=== PATIENT | female | born 1970 | race Caucasian/White ===

== ENCOUNTER 2022-11-26 00:32 | Outpatient (CLI) | payer BC, SELFPAY ==
--- NOTE | 2022-11-26 | DI.MAMMO_ITS ---
Exam(s) MAMMO SCREENING EXAM: MAMMO SCREENING CLINICAL HISTORY: SCREENING FOR BREAST CANCER Z12.39 TECHNIQUE: Bilateral full field digital CC and MLO mammographic images were obtained with 3D tomosyn thesis and utilizing computer aided detection (CAD). COMPARISON: Available for comparison. FINDINGS: Masses/Architectural Distortion: None seen. Microcalcifications: No suspicious pleomorphic-type are seen. Skin Thickening/Nipple Retraction: None. IMPRESSION: 1. No significant interval change with no specific features of malignancy noted. 2. Unless there is more urgent need, screening mammography is recommended, as per [employer] guidelines. BI-RADS Category 1 - Negative Breast Density - Category C - Heterogeneously dense Breast density category C or D implies that the patient has dense breast tissue. Dense breast tissue is very common and is not abnormal but dense breast tissue can make it harder to find cancer on a ma mmogram. Also, dense breast tissue may increase their breast cancer risk. This information about the result of the mammogram report was provided to the patient to raise their awareness. Use this report when you speak with the patient about their risks for breast cancer, which includes their family hist ory. At that time, you may recommend for more screening tests (Ultrasound or MRI) as they might be us eful based on their risk. A negative radiographic report should not delay biopsy if a dominant or clinically suspicious mass is present. Up to ten percent of cancers are not identified on mammography. A negative report may reinforce clinical impression. Adenosis and dense breasts may obscure an underlying neoplasm. False positive reports average 6 to 10%. Patient will receive a letter notifying them of these results.
== END 2022-11-26 00:52 ==
PROVIDERS: Visit Provider Physician Assistant Medical
DX: Z12.31 Encounter for screening mammogram for malignant neoplasm of breast (principal)
CPT/HCPCS: 77063; 77067

== ENCOUNTER 2023-02-17 10:02 | Outpatient (REF) | payer BC, SELFPAY ==
--- NOTE | 2023-02-17 09:15 | PAPFT_PTH ---
PATIENT: Leila Oneill LOC: [facility] U#:[id number] AGE/SX: 52/F ROOM: RE02/17/[address]: Ivelisse Hollins NP : 1970 BED: DIS: 02/17/2023 SPEC #: [id number] RECD: 02/17/23 12:53 STATUS: YUMIKO REChristoph #: [id number] MEHRAN: 02/17/23 09:[address]: Ivelisse Hollins NP DEPT: [facility] Cytology RECD BY: Josephine Florez ENTERED: 02/17/23 12:53 SP TYPE: PAPFT OTHR DR: Lyndsay Baird Tissues: 1 - CX/ENDOCX FOR PAP SMEARS Procedures: PAP THIN PREP/UVM Screening HPV DNA PROBE Comments: [id number]
== END 2023-02-17 10:03 | disposition home or self-care (01) ==
LOC: LBN 10:02
PROVIDERS: PCP Physician Assistant Medical; Visit Provider Nurse Practitioner Women's Health
DX: Z11.51 Encounter for screening for human papillomavirus (HPV) (principal)
CPT/HCPCS: 88142; 87624

== ENCOUNTER → 2023-03-10 11:45 | Outpatient (CLI) | payer BC, SELFPAY ==
--- NOTE | 2023-03-10 08:45 | DI.RAD_ITS ---
Exam(s) XR FOOT LT COMPLETE XR FOOT RT COMPLETE EXAM: XR FOOT RT COMPLETE CLINICAL HISTORY: bunion and hammertoe. TECHNIQUE: 2D digital imaging was performed. Three views. COMPARISON: CR XR FOOT LT COMPLETE from 03/10/2023 FINDINGS: BONES: No acute fracture is present. No bony destructive lesion is seen. Small heel spurs. JOINTS: No dislocation present. Mild spurring at 1st metatarsal heads. Plantar arch is maintained. SOFT TISSUE: Mild swelling adjacent the 1st metatarsal heads. IMPRESSION: Mild degenerative changes. DATA REPOSITORY: RADIATION DOSE DELIVERED:
== END ==
PROVIDERS: PCP Physician Assistant Medical; Visit Provider Podiatrist
DX: M20.42 Other hammer toe(s) (acquired), left foot (principal); M21.612 Bunion of left foot
CPT/HCPCS: 73630

== ENCOUNTER 2024-01-11 15:59 | Outpatient (CLI) | payer BC, SELFPAY ==
[2024-01-12 18:28] LABS: FSH 5.8 mIU/mL (See Note)
== END 2024-01-11 16:00 | disposition home or self-care (01) ==
LOC: LBO 16:00
PROVIDERS: PCP Physician Assistant Medical; Visit Provider Nurse Practitioner Women's Health
DX: N91.2 Amenorrhea, unspecified (principal)
CPT/HCPCS: 36415; 83001

== ENCOUNTER 2024-02-21 11:36 | Outpatient (REF) | payer BC, SELFPAY ==
[2024-02-22 12:14] LABS: Chlamydia Result Negative (Negative); GC Result Negative (Negative)
== END 2024-02-21 11:37 | disposition home or self-care (01) ==
LOC: LBN 11:36
PROVIDERS: PCP Physician Assistant Medical; Visit Provider Nurse Practitioner Women's Health
DX: Z11.3 Encounter for screening for infections with a predominantly sexual mode of transmission (principal)
CPT/HCPCS: 87491; 87591

== ENCOUNTER → 2024-03-01 00:50 | Outpatient (CLI) | payer BC, SELFPAY ==
--- NOTE | 2024-03-01 | DI.MAMMO_ITS ---
Exam(s) MAMMO SCREENING EXAM: MAMMO SCREENING CLINICAL HISTORY: Screening, Z12.39. TECHNIQUE: Bilateral full field digital CC and MLO mammographic images were obtained with 3D tomosyn thesis and utilizing computer aided detection (CAD). COMPARISON: Prior mammograms were reviewed. Most recent mammogram was November 2022. FINDINGS: Size difference of both breasts when compared to 2022 reflects her reported 30 pound weight loss The fibroglandular tissue pattern is again noted be dense. No obvious new findings in left breast. In the right breast there is a group of microcalcifications at approximately 6 o'clock position locat ed 2.5 cm in from the nipple. Require spot Mag views. There are no obvious new spiculated masses. There is no significant architectural distortion nor skin thickening-retraction. IMPRESSION: Dense bilateral fibroglandular tissue. No obvious radiographic evidence of malignancy in left breast . Right breast microcalcification group which requires additional views including spot Mag 2D cc view a nd straight lateral view. BI-RADS Category 0 - Incomplete: Need additional imaging evaluation Breast Density - Category C - Heterogeneously dense Breast density Category C or D implies that the patient has dense breast tissue. Dense breast tissue can make it harder to find cancer on a mammogram. Dense breast tissue is also associated with an incr eased risk of breast cancer. This information about the result of the mammogram report was provided to the patient to raise their awareness. Use this report when you speak with the patient about their risks for breast cancer, which includes their family history. At that time, you may recommend additional screening tests (Ultrasoun d or MRI) as these tests may add significant information. A negative radiographic report should not delay biopsy if a dominant or clinically suspicious mass is present. Up to ten percent of cancers are not identified on mammography. A negative report may reinforce clinical impression. Adenosis and dense breasts may obscure an underlying neoplasm. False positive reports average 6 to 10%. Patient will receive a letter notifying them of these results.
== END ==
PROVIDERS: PCP Physician Assistant Medical; Visit Provider Nurse Practitioner Women's Health
DX: Z12.39 Encounter for other screening for malignant neoplasm of breast (principal); Z12.31 Encounter for screening mammogram for malignant neoplasm of breast; R92.8 Other abnormal and inconclusive findings on diagnostic imaging of breast; R92.333 Mammographic heterogeneous density, bilateral breasts
CPT/HCPCS: 77063; 77067

== ENCOUNTER 2024-03-03 00:23 | Outpatient (CLI) | payer BC, SELFPAY ==
--- NOTE | 2024-03-03 | DI.MAMMO_ITS ---
Exam(s) MG MAMMO SCREEN CALL BACK UNI EXAM: MAMMO SCREEN CALL BACK UNI -LEFT CLINICAL HISTORY: F/U MAMMO, R92.8,RT BREAST MICROCALCIFICATIONS. TECHNIQUE: Unilateral RIGHT BREAST 2D spot MAG AND 2D STRAIGHT LATERAL mammographic images obtained with Computer aided detection (CAD). . COMPARISON: Prior mammograms were reviewed. This additional imaging was performed due to findings described on the recent screening mammogram of 03/01/2024. FINDINGS: DIAGNOSTIC MAMMOGRAM: Additional mammographic views performed today reveals this microcalcification group to exhibit minima l change from the November 2022 study. The most recent study prior to that was 2016. There are no interv al mammograms. IMPRESSION: 1. Probable benign-appearing microcalcification group, exhibiting minimal change from mammogram of 2022. 2. Recommend follow-up right breast mammogram with spot Mag to the CC, MLO, and straight lateral vie ws in 6 months from now. The patient was informed of these findings and recommendations by myself prior to leaving the departm ent today. BI-RADS Category 3 - 6 month - Probably Benign Finding: Recommend follow-up mammography in 6 months Breast Density - Category C - Heterogeneously dense Breast density Category C or D implies that the patient has dense breast tissue. Dense breast tissue can make it harder to find cancer on a mammogram. Dense breast tissue is also associated with an incr eased risk of breast cancer. This information about the result of the mammogram report was provided to the patient to raise their awareness. Use this report when you speak with the patient about their risks for breast cancer, which includes their family history. At that time, you may recommend additional screening tests (Ultrasoun d or MRI) as these tests may add significant information. A negative radiographic report should not delay biopsy if a dominant or clinically suspicious mass is present. Up to ten percent of cancers are not identified on mammography. A negative report may reinforce clinical impression. Adenosis and dense breasts may obscure an underlying neoplasm. False positive reports average 6 to 10%. Patient will receive a letter notifying them of these results.
== END 2024-03-03 00:43 ==
LOC: DI 00:23
PROVIDERS: PCP Physician Assistant Medical; Visit Provider Nurse Practitioner Women's Health
DX: Z12.31 Encounter for screening mammogram for malignant neoplasm of breast (principal); R92.8 Other abnormal and inconclusive findings on diagnostic imaging of breast
CPT/HCPCS: 77063; 77067

== ENCOUNTER 2024-09-06 01:41 | Outpatient (CLI) | payer BC, SELFPAY ==
--- NOTE | 2024-09-06 | DI.US_ITS ---
Exam(s) MG MAMMO DIAGNOSTIC UNI US BREAST RT COMPLETE EXAM: MG MAMMO DIAGNOSTIC UNI-RIGHT AND COMPLETE RIGHT BREAST ULTRASOUND CLINICAL HISTORY: 6 month f/u R breast,MICROCALCIFICATION GROUP. TECHNIQUE: Unilateral RIGHT BREAST spot mammographic images were obtained with 2D TECHNIQUE AND UTIL IZING ICAD Complete right breast ultrasound was performed including all 4 quadrants well as the right axilla. COMPARISON: Prior mammograms were reviewed. This patient is also having breast ultrasound as she feels a new small lump in the right axillary tess l region for the past few months which she describes as between a green pea and marble in size. FINDINGS: DIAGNOSTIC RIGHT BREAST MAMMOGRAM: Spot compression 2D views reveal stable appearance of the previously described microcalcification mingo up in the right breast. Maintains benign appearance. COMPLETE RIGHT BREAST ULTRASOUND: At the 12 o'clock position there is a 7 x 3 millimeter benign microcyst. At the 8 o'clock position there is a 6 x 2 mm benign microcyst. At the right axillary tail region there is an 8 x 5 mm nodule corresponding to this patient's palpabl e finding and having the appearance of the 8 x 5 mm lymph node. There is no prominent lymphadenopath y in the right axilla. We scanned the left axilla for comparison purposes and found similar appearing lymph nodes which also exhibit upper normal size. IMPRESSION: 1. Continued stable appearance of microcalcification group in the right breast. Repeat right breast mammogram and spot Mag views in 6 months recommended. Need to establish this group as stable for at least 2 years on a Qsix-month basis. 2. Benign-appearing ultrasound findings including palpable nodule in the right axillary tail which ap pears correspond to a benign-appearing lymph node, as described above Appropriate follow-up is repeat right breast mammogram and spot Mag views in 6 months. Also recommen d repeat ultrasound at that time.. The patient was informed of the findings and follow-up recommendations by myself prior to leaving the department today. BI-RADS Category 3 - 6 month - Probably Benign Finding: Recommend follow-up mammography in 6 months Breast Density - Category C - Heterogeneously dense Breast density Category C or D implies that the patient has dense breast tissue. Dense breast tissue can make it harder to find cancer on a mammogram. Dense breast tissue is also associated with an incr eased risk of breast cancer. This information about the result of the mammogram report was provided to the patient to raise their awareness. Use this report when you speak with the patient about their risks for breast cancer, which includes their family history. At that time, you may recommend additional screening tests (Ultrasoun d or MRI) as these tests may add significant information. A negative radiographic report should not delay biopsy if a dominant or clinically suspicious mass is present. Up to ten percent of cancers are not identified on mammography. A negative report may reinforce clinical impression. Adenosis and dense breasts may obscure an underlying neoplasm. False positive reports average 6 to 10%. Patient will receive a letter notifying them of these results.
== END 2024-09-06 02:01 ==
LOC: DI 01:41
PROVIDERS: PCP Physician Assistant Medical; Visit Provider Nurse Practitioner Women's Health
DX: R92.8 Other abnormal and inconclusive findings on diagnostic imaging of breast (principal); Z12.31 Encounter for screening mammogram for malignant neoplasm of breast
CPT/HCPCS: 76642; 77061; 77065; G0279

== ENCOUNTER 2025-02-26 08:54 | Outpatient (REF) | payer BC, SELFPAY ==
[2025-02-27 12:54] LABS: Chlamydia Result Negative (Negative); GC Result Negative (Negative)
== END 2025-02-26 08:55 | disposition home or self-care (01) ==
LOC: LBN 08:54
PROVIDERS: PCP Physician Assistant Medical; Visit Provider Nurse Practitioner Women's Health
DX: Z11.3 Encounter for screening for infections with a predominantly sexual mode of transmission (principal)
CPT/HCPCS: 87491; 87591

== ENCOUNTER 2025-03-06 15:43 | Outpatient (CLI) | payer BC, SELFPAY ==
--- NOTE | 2025-03-06 07:45 | DI.MAMMO_ITS ---
Exam(s) US BREAST RT LIMITED MG MAMMO DIAGNOSTIC BI EXAM: MG MAMMO DIAGNOSTIC BI CLINICAL HISTORY: 6 month f/u,F/U ABNL/INCONCLUSIVE MAMMO,R92.8,MICROCALCIFICATION RT BREAST. COMPARISON: MG Screening Bilat Mammo from 11/15/2015 MG MG MAMMO SCREENING from 11/26/2022 MG MG MAMMO SCREENING from 03/01/2024 MG MG MAMMO SCREEN CALL BACK UNI from 03/03/2024 US US BREAST RT COMPLETE from 09/06/2024 MG MG MAMMO DIAGNOSTIC UNI from 09/06/2024 US US BREAST RT LIMITED from 03/06/2025 TECHNIQUE: Craniocaudal and mediolateral oblique Full Field Digital Mammography views of both breasts with Computer Aided Diagnosis followed by Tomosynthesis, spot magnification views of the right breast and right breast ultrasound. FINDINGS: Mammography/Tomosynthesis: Masses: None seen. Architectural Distortion: None seen. Microcalcifications: Stable loosely clustered calcifications in the central left breast since 2022. No suspicious pleomorphic-type are seen. Skin Thickening/Nipple Retraction: None. Right breast US: Echotexture: Normal appearance of the glandular tissue. Shadowing: No suspicious foci. Cyst/solid lesions: 12 o'clock position 2 cm from the nipple, decreased size cyst, now measuring 5 x 3 x 6 millimeters. 8 o'clock position 5 x 2 x 4 millimeter cyst. 11 o'clock position 5 x 3 x 4 millimeter smoothly marginated hypoechoic nodule. Lymph node again noted in the axillary tail measuring 12 millimeters. Ductal dilation: None. IMPRESSION: 1. No evidence of malignancy is noted. 2. Unless there is more urgent need, follow-up screening mammography is recommended in 1 year. BI-RADS Category 2 - Benign Findings Breast Density - Category C - The breast are heterogeneously dense, which may obscure small masses. Breast density Category C or D implies that the patient has dense breast tissue. Dense breast tissue can make it harder to find cancer on a mammogram. Dense breast tissue is also associated with an increased risk of breast cancer. This information about the result of the mammogram report was provided to the patient to raise their awareness. Use this report when you speak with the patient about their risks for breast cancer, which includes their family history. At that time, you may recommend additional screening tests (Ultrasound or MRI) as these tests may add significant information. A negative radiographic report should not delay biopsy if a dominant or clinically suspicious mass is present. Up to ten percent of cancers are not identified on mammography. A negative report may reinforce clinical impression. Adenosis and dense breasts may obscure an underlying neoplasm. False positive reports average 6 to 10%. Patient will receive a letter notifying them of these results.
== END 2025-03-06 16:03 ==
LOC: DI 15:43
PROVIDERS: PCP Physician Assistant Medical; Visit Provider Nurse Practitioner Women's Health
DX: N63.15 Unspecified lump in the right breast, overlapping quadrants (principal); Z12.31 Encounter for screening mammogram for malignant neoplasm of breast
CPT/HCPCS: 76642; 77062; 77066; G0279